=== PATIENT | male | born 1960 | race Caucasian/White ===

== ENCOUNTER → 2019-08-19 | Outpatient (CLI) | payer OTHER ==
[~2019-08-19] MED LIST: ASPIR-LOW81 MG PO; ATIVAN1 MG PO; CIPROFLOXACIN500 MG PO; DARVOCET N 1001 TAB PO; FISH OIL1000 MG PO; LEVOFLOXACIN500 MG PO; METFORMIN500 MG PO; METOPROLOL50 MG PO; PREDNISONE20 M1 PO; TESSALON PERLE100 M1 PO
== END | disposition home or self-care (01) ==
LOC: CARD 12:00
DX: I25.5 Ischemic cardiomyopathy (principal); I34.0 Nonrheumatic mitral (valve) insufficiency

== ENCOUNTER → 2019-11-25 | Outpatient (CLI) | payer OTHER | END | disposition home or self-care (01) | LOC: US 09:22 | DX: Z13.6 Encounter for screening for cardiovascular disorders (principal); E11.9 Type 2 diabetes mellitus without complications; I10 Essential (primary) hypertension; Z72.0 Tobacco use ==

== ENCOUNTER → 2020-07-26 | Outpatient (CLI) | payer OTHER ==
[2020-07-26 11:03] LABS: HEMATOCRIT 48.8 % (42.0-52.0); MEAN CELL VOLUME 91.6 fl (80.0-94.0); MEAN CORPUSCULAR HGB 31.1 pg (27.0-31.0); MEAN PLATELET VOLUME 10.6 fl (9.6-12.3); RED BLOOD COUNT 5.33 10*6/uL (4.50-5.90); RED CELL DISTRI WIDTH 12.7 % (0-14.5); WHITE BLOOD COUNT 7.8 10*3/uL (4.8-10.8)
[2020-07-26 11:21] LABS: ALBUMIN 3.6 gm/dl (3.1-4.5); ALKALINE PHOSPHATASE 154 U/L (45-117); BUN 19 mg/dl (7-24); CHLORIDE 104 mmol/L (98-107); CHOLESTEROL 96 mg/dL (<200); CREATININE 0.71 mg/dL (0.70-1.30); HDL CHOLESTEROL 25 mg/dl (40-60); LDL CHOLESTEROL 33 mg/dL (9-159); POTASSIUM 3.9 mmol/L (3.5-5.1); SGOT/AST 17 IU/L (3-35); SGPT/ALT 23 U/L (12-78); SODIUM 137 mmol/L (136-145); TOTAL PROTEIN 7.6 gm/dL (6.4-8.2); TRIGLYCERIDES 191 mg/dl (<150); VLDL CHOLESTEROL 38 mg/dL (6-40)
[2020-07-26 11:37] LABS: CPK 59 U/L (39-308)
[2020-07-26 12:12] LABS: VITAMIN D, 25-HYDROXY 22.2 ng/mL (30-100)
== END | disposition home or self-care (01) ==
LOC: LAB 01:37
PROVIDERS: ATTEND Family Medicine
DX: Z12.5 Encounter for screening for malignant neoplasm of prostate (principal); E78.00 Pure hypercholesterolemia, unspecified; E11.9 Type 2 diabetes mellitus without complications; I10 Essential (primary) hypertension; I25.10 Atherosclerotic heart disease of native coronary artery without angina pectoris; K21.9 Gastro-esophageal reflux disease without esophagitis; D64.9 Anemia, unspecified

== ENCOUNTER → 2020-09-11 | Outpatient (CLI) | payer OTHER | END | disposition home or self-care (01) | LOC: RAD 07:51 | PROVIDERS: ATTEND Family Medicine | DX: K21.9 Gastro-esophageal reflux disease without esophagitis (principal); R10.9 Unspecified abdominal pain ==

== ENCOUNTER → 2020-10-23 | Outpatient (CLI) | payer OTHER ==
[2020-10-23 12:32] LABS: HEMATOCRIT 48.2 % (42.0-52.0); MEAN CELL VOLUME 94.7 fl (80.0-94.0); MEAN CORPUSCULAR HGB 31.8 pg (27.0-31.0); MEAN CORPUSCULAR HGB CONC 33.6 g/dl (33.0-37.0); MEAN PLATELET VOLUME 10.8 fl (9.6-12.3); RED BLOOD COUNT 5.09 10*6/uL (4.50-5.90); RED CELL DISTRI WIDTH 13.2 % (0-14.5); WHITE BLOOD COUNT 8.7 10*3/uL (4.8-10.8)
[2020-10-23 12:50] LABS: ALBUMIN 3.8 gm/dl (3.1-4.5); ALKALINE PHOSPHATASE 131 U/L (45-117); BUN 21 mg/dl (7-24); CHLORIDE 104 mmol/L (98-107); CHOLESTEROL 87 mg/dL (<200); CPK 75 U/L (39-308); CREATININE 0.78 mg/dL (0.70-1.30); HDL CHOLESTEROL 36 mg/dl (40-60); LDL CHOLESTEROL 28 mg/dL (9-159); POTASSIUM 4.5 mmol/L (3.5-5.1); SGOT/AST 21 IU/L (3-35); SGPT/ALT 23 U/L (12-78); SODIUM 139 mmol/L (136-145); TOTAL PROTEIN 7.8 gm/dL (6.4-8.2); TRIGLYCERIDES 117 mg/dl (<150); VLDL CHOLESTEROL 23 mg/dL (6-40)
== END | disposition home or self-care (01) ==
LOC: LAB 12:12
PROVIDERS: ATTEND Family Medicine
DX: I10 Essential (primary) hypertension (principal); E11.9 Type 2 diabetes mellitus without complications; E78.00 Pure hypercholesterolemia, unspecified

== ENCOUNTER → 2021-01-19 | Outpatient (CLI) | payer OTHER ==
[2021-01-19 14:45] LABS: HEMATOCRIT 49.3 % (42.0-52.0); MEAN CELL VOLUME 94.8 fl (80.0-94.0); MEAN CORPUSCULAR HGB 31.7 pg (27.0-31.0); MEAN CORPUSCULAR HGB CONC 33.5 g/dl (33.0-37.0); MEAN PLATELET VOLUME 10.4 fl (9.6-12.3); RED BLOOD COUNT 5.2 10*6/uL (4.50-5.90); RED CELL DISTRI WIDTH 13.2 % (0-14.5); WHITE BLOOD COUNT 8.4 10*3/uL (4.8-10.8)
[2021-01-19 15:16] LABS: ALBUMIN 3.7 gm/dl (3.1-4.5); ALKALINE PHOSPHATASE 127 U/L (45-117); BUN 21 mg/dl (7-24); CHLORIDE 102 mmol/L (98-107); CHOLESTEROL 100 mg/dL (<200); CREATININE 0.74 mg/dL (0.70-1.30); HDL CHOLESTEROL 35 mg/dl (40-60); LDL CHOLESTEROL 27 mg/dL (9-159); SGOT/AST 24 IU/L (3-35); SGPT/ALT 27 U/L (12-78); SODIUM 137 mmol/L (136-145); TOTAL PROTEIN 7.4 gm/dL (6.4-8.2); TRIGLYCERIDES 189 mg/dl (<150); VLDL CHOLESTEROL 38 mg/dL (6-40)
[2021-01-19 15:29] LABS: CPK 85 U/L (39-308)
== END | disposition home or self-care (01) ==
LOC: LAB 14:27
PROVIDERS: ATTEND Family Medicine
DX: I10 Essential (primary) hypertension (principal); E11.9 Type 2 diabetes mellitus without complications; E55.9 Vitamin D deficiency, unspecified; E78.00 Pure hypercholesterolemia, unspecified; Z79.899 Other long term (current) drug therapy

== ENCOUNTER → 2021-08-29 | Outpatient (CLI) | payer MEDICARE, MEDICAID | END | disposition home or self-care (01) | LOC: US 08-21 13:00 | PROVIDERS: ATTEND Family Medicine | DX: R10.11 Right upper quadrant pain (principal) ==

== ENCOUNTER → 2021-09-11 | Outpatient (CLI) | payer MEDICARE, MEDICAID ==
[2021-09-11 15:13] LABS: CREATININE 0.85 mg/dL (0.70-1.30)
== END | disposition home or self-care (01) ==
LOC: LAB 00:15 → CT 15:00 → LAB 15:00
PROVIDERS: Radiology Diagnostic Radiology; ATTEND Family Medicine
DX: K86.2 Cyst of pancreas (principal); K74.60 Unspecified cirrhosis of liver

== ENCOUNTER → 2022-01-09 | Outpatient (CLI) | payer MEDICARE, MEDICAID | END | disposition home or self-care (01) | LOC: CARD 00:05 | PROVIDERS: ATTEND Internal Medicine Cardiovascular Disease | DX: I25.5 Ischemic cardiomyopathy (principal) ==

== ENCOUNTER 2022-10-01 15:27 | Emergency (ER) | payer OTHER ==
[~2022-10-01] VITALS: Ht 186.6 cm; Wt 65.8 kg
[2022-10-01 15:35] VITALS: BP 99/63
[2022-10-01] MEDS ORDERED: GABAPENTIN100 M2 PO (15:42)
[2022-10-01 19:53] LABS: BASO % 0.6 % (0.0-1.0); EOS # 0.2 10*3/uL (0.0-0.4); EOS % 2.1 % (1.0-4.0); HEMATOCRIT 43.6 % (42.0-52.0); LYMPH % 27.9 % (27.0-41.0); MEAN CORPUSCULAR HGB 32.7 pg (27.0-31.0); MEAN CORPUSCULAR HGB CONC 34.4 g/dl (33.0-37.0); MEAN PLATELET VOLUME 10.2 fl (9.6-12.3); MONO # 0.7 10*3/uL (0.1-1.0); MONO % 9.4 % (3.0-9.0); NEUT # 4.3 10*3/uL (2.3-7.9); NEUT % 59.7 % (47.0-73.0); PLATELET COUNT AUTOMATED 176 10*3/uL (130-400); RED BLOOD COUNT 4.59 10*6/uL (4.50-5.90); RED CELL DISTRI WIDTH 13.4 % (0-14.5); WHITE BLOOD COUNT 7.2 10*3/uL (4.8-10.8)
[2022-10-01 20:03] LABS: ACT PARTIAL THROMBO TIME 25.7 SECONDS (20.0-32.1)
[2022-10-01 20:08] LABS: ALKALINE PHOSPHATASE 141 U/L (45-117); BUN 15 mg/dl (7-24); CHLORIDE 109 mmol/L (98-107); CREATININE 0.51 mg/dL (0.70-1.30); POTASSIUM 4.1 mmol/L (3.5-5.1); SGOT/AST 15 IU/L (3-35); SGPT/ALT 18 U/L (12-78); SODIUM 140 mmol/L (136-145)
[2022-10-01] MEDS ORDERED: PLAVIX75 M1 PO (20:48)
[2022-10-01] MEDS ORDERED: CILOSTAZOL100 MG PO (20:52)
== END 2022-10-01 22:00 | disposition home or self-care (01) ==
LOC: ED 15:27
PROVIDERS: Family Medicine
DX: I73.9 Peripheral vascular disease, unspecified (principal); G62.9 Polyneuropathy, unspecified; Z88.0 Allergy status to penicillin; Z91.030 Bee allergy status; Z79.899 Other long term (current) drug therapy; Z79.82 Long term (current) use of aspirin

== ENCOUNTER 2024-09-22 15:54 | Emergency (ER) | payer OTHER, MEDICARE, MEDICAID ==
[~2024-09-22] VITALS: Ht 185.4 cm; Wt 61.7 kg
[~2024-09-22 15:54] MED LIST changes: +CILOSTAZOL100 MG PO; +GABAPENTIN100 M2 PO; +PLAVIX75 M1 PO
[2024-09-22 16:41] VITALS: BP 106/44
[2024-09-22 18:19] LABS: BASO % 0.5 % (0.0-1.0); EOS # 0.1 10*3/uL (0.0-0.4); EOS % 1.1 % (1.0-4.0); HEMATOCRIT 47.4 % (42.0-52.0); LYMPH # 1.4 10*3/uL (1.3-4.4); LYMPH % 18.5 % (27.0-41.0); MEAN CELL VOLUME 97.3 fl (80.0-94.0); MEAN CORPUSCULAR HGB 32.4 pg (27.0-31.0); MEAN CORPUSCULAR HGB CONC 33.3 g/dl (33.0-37.0); MEAN PLATELET VOLUME 10.2 fl (9.6-12.3); MONO # 0.6 10*3/uL (0.1-1.0); MONO % 7.8 % (3.0-9.0); NEUT # 5.3 10*3/uL (2.3-7.9); NEUT % 71.6 % (47.0-73.0); PLATELET COUNT AUTOMATED 205 10*3/uL (130-400); RED BLOOD COUNT 4.87 10*6/uL (4.50-5.90); RED CELL DISTRI WIDTH 13.3 % (0-14.5); WHITE BLOOD COUNT 7.4 10*3/uL (4.8-10.8)
[2024-09-22 18:39] LABS: BUN 18 mg/dl (9-23); CHLORIDE 103 mmol/L (98-107); POTASSIUM 4.1 mmol/L (3.4-5.1)
[2024-09-22] MEDS ORDERED: VIBRAMYCIN100 MG PO (19:51)
[2024-09-22] MEDS ORDERED: Doxycycline Hyclate 100 MG CAP PO ONE (19:55)
== END 2024-09-22 20:05 | disposition home or self-care (01) ==
LOC: ED 15:54
PROVIDERS: Physician Assistant Medical
DX: L03.116 Cellulitis of left lower limb (principal); Z88.0 Allergy status to penicillin; Z91.038 Other insect allergy status; Z79.82 Long term (current) use of aspirin; Z79.899 Other long term (current) drug therapy